=== PATIENT | female | born 1985 | race African-American/Black ===

== ENCOUNTER 2021-04-06 09:49 | Emergency (ER) | payer MEDICAID ==
[~2021-04-06] VITALS: Ht 157.5 cm; Wt 67.0 kg
[2021-04-06 09:52] VITALS: BP 119/71
[2021-04-06] MEDS ORDERED: BO1 TP (10:18)
[2021-04-06] MEDS ORDERED: BACITRACIN ZINC OINT UDPKT TOP ONE (10:30)
[2021-04-06] MEDS ORDERED: ACETAMINOPHEN 325MG TABLET PO ONE (10:30)
[2021-04-06] MEDS ORDERED: TETANUS, DIPHTHERIA, PERTUSSIS VAC/PF 0.5ML (>10YR OLD) IM ONE (10:30)
== END 2021-04-06 10:50 | disposition home or self-care (01) ==
LOC: ER 09:49
DX: S61.212A Laceration without foreign body of right middle finger without damage to nail, initial encounter (principal); W26.8XXA Contact with other sharp object(s), not elsewhere classified, initial encounter; Y93.89 Activity, other specified; Y92.9 Unspecified place or not applicable
CPT/HCPCS: 29130; 99283; A4217; Z7610; 90715